=== PATIENT | male | born 1990 | race Caucasian/White ===

== ENCOUNTER → 2022-06-22 | Outpatient (CLI) | payer BC ==
--- NOTE | 2022-06-22 09:40 | CT ---
EXAM: CT Abdomen With Intravenous Contrast CLINICAL HISTORY: ITS.REASON CT Reason: R10.12 LEFT UPPER QUADRANT PAIN TECHNIQUE: Axial computed tomography images of the abdomen with intravenous contrast. CTDI is 11.0 mGy and DLP is 307.5 mGy-cm. This CT exam was performed using one or more of the following dose reduction techniques: automated exposure control, adjustment of the mA and/or kV according to patient size, and/or use of iterative reconstruction technique. COMPARISON: No relevant prior studies available. FINDINGS: Lung bases: Unremarkable. No mass. No consolidation. Liver: Grossly Unremarkable. No mass. Gallbladder and bile ducts: No calcified stones. No ductal dilation. Pancreas: No mass. No ductal dilation. Spleen: No splenomegaly. Adrenals: No mass. Kidneys and ureters: No solid mass. No hydronephrosis. Incomplete evaluation of the ureters as the pelvis was not imaged. Stomach and bowel: No obstruction. Incomplete evaluation as the pelvis was not imaged. Moderate fecal stasis throughout the colon. Intraperitoneal space: No free air. No significant fluid collection. Bones/joints: Bilateral pars defects at L5-S1. No acute fracture. No dislocation. Soft tissues: Unremarkable. Vasculature: No abdominal aortic aneurysm. Lymph nodes: No enlarged lymph nodes. IMPRESSION: No acute findings in the abdomen.
== END | disposition home or self-care (01) ==
LOC: RADCTMAIN 07:43
PROVIDERS: ATTEND Family Medicine
DX: R10.12 Left upper quadrant pain (principal)
CPT/HCPCS: 74160; Q9967